=== PATIENT | female | born 2000 | race Caucasian/White ===

== ENCOUNTER 2022-11-16 16:04 | Emergency (ER) | payer OTHER ==
[~2022-11-16] VITALS: Ht 172.7 cm; Wt 117.9 kg
[2022-11-16] MEDS ORDERED: Bactrim Ds Tab1 EACH PO (16:23)
== END 2022-11-16 16:28 | disposition home or self-care (01) ==
LOC: ER 16:04
DX: L08.9 Local infection of the skin and subcutaneous tissue, unspecified (principal)
CPT/HCPCS: 99283; A9270

== ENCOUNTER 2024-10-22 16:50 | Emergency (ER) | payer SELFPAY ==
[~2024-10-22] VITALS: Ht 160 cm; Wt 131.5 kg
[~2024-10-22 16:50] MED LIST: Bactrim Ds Tab1 EACH PO
[2024-10-22] MEDS ORDERED: Ondansetron HCl 2 MG / ML 2ML Vial IV ONE ×3 (17:05→22:10)
[2024-10-22 18:11] LABS: BASOPHILS ABSOLUTE AUTO 0.01 K/mm3 (0.00-0.23); BASOPHILS PERCENT AUTO 0 % (0-2); EOSINOPHILS ABSOLUTE AUTO 0.03 K/mm3 (0.00-0.68); EOSINOPHILS PERCENT AUTO 0 % (0-6); Hematocrit 37.4 % (33.0-51.0); Hemoglobin 12.5 g/dL (11.5-16.0); IMMATURE GRAN ABSOLUTE AUTO 0.03 K/mm3 (0.00-0.10); IMMATURE GRAN PERCENT AUTO 0 % (0-1); LYMPHOCYTES ABSOLUTE AUTO 1.62 K/mm3 (0.84-5.20); LYMPHOCYTES PERCENT AUTO 20 % (21-46); MONOCYTES ABSOLUTE AUTO 0.42 K/mm3 (0.16-1.47); MONOCYTES PERCENT AUTO 5 % (4-13); Mean Corpuscular HGB Conc 33.4 g/dL (31.5-36.5); Mean Corpuscular Volume 84 fL (80-100); Mean Platelet Volume 8.7 fL (9.1-12.4); NEUTROPHILS ABSOLUTE AUTO 5.96 K/mm3 (1.96-9.15); NEUTROPHILS PERCENT AUTO 74 % (41-73); Platelet Count 428 K/mm3 (150-400); RDW Coefficient Variation 13.6 % (11.7-14.2); RDW Standard Deviation 41.6 fL (35.1-46.3); Red Blood Cell Count 4.47 M/mm3 (3.80-5.20); White Blood Cell Count 8.07 K/mm3 (4.00-11.30)
[2024-10-22 18:28] LABS: Albumin, Blood 3.9 g/dL (3.4-5.0); Albumin/Globulin Ratio 1.1 (0.8-1.8); Bilirubin, Total 0.5 mg/dL (0.1-1.0); Calcium, Blood 9.3 mg/dL (8.5-10.1); Creatinine, Blood 0.87 mg/dL (0.40-1.00); Globulin, Blood 3.6 g/dL (2.2-4.0); Magnesium, Blood 2.4 mg/dL (1.6-2.4); Potassium, Blood 4.2 mmol/L (3.5-5.5); Total Protein, Blood 7.5 g/dL (6.4-8.2)
[2024-10-22 18:41] LABS: CORONAVIRUS COVID-19 AG Negative (NEGATIVE); INFLUENZA A AG Negative (NEGATIVE); INFLUENZA B AG Negative (NEGATIVE)
[2024-10-22] MEDS ORDERED: Ondansetron HCl 2 MG / ML 2ML Vial ONE (19:16)
[2024-10-22 19:40] LABS: Source, Urine Clean Catch
[2024-10-22] MEDS ORDERED: NS 1,000 ML IV SCH (19:40)
[2024-10-22 19:45] LABS: Appearance, Urine Hazy (Clear); Bilirubin, Urine Neg (Neg); Blood, Urine 1+ (Neg); Color, Urine Yellow (P-Yellow); Glucose Qualitative, Urine Neg (Neg); Ketones, Urine 2+ (Neg); Leukocyte Esterase, Urine 1+ (Neg); Nitrite, Urine Neg (Neg); Protein, Urine 1+ (Neg); Urobilinogen, Urine NORM (Normal)
[2024-10-22 19:58] LABS: Bacteria Many /hpf; Mucus Light (0-Heavy); Squamous Epithelial Cells Mod /hpf (Few)
[2024-10-22] MEDS ORDERED: Cephalexin Monohydrate 250 MG/5 ML UD BTL PO ONE ×2 (21:30→22:10)
[2024-10-22 22:07] VITALS: BP 131/84
[2024-10-22] MEDS ORDERED: Cephalexin Monohydrate 500 MG Cap PO ONE (22:10)
[2024-10-22] MEDS ORDERED: ONDA4ODT MM (22:25)
[2024-10-22] MEDS ORDERED: CEPH500 PO (22:47)
== END 2024-10-22 22:30 | disposition home or self-care (01) ==
LOC: ER 16:50
PROVIDERS: Physician Assistant; Student in an Organized Health Care Education/Training Program
DX: R10.13 Epigastric pain (principal); K92.0 Hematemesis; K80.20 Calculus of gallbladder without cholecystitis without obstruction
CPT/HCPCS: 74177; 76705; 80053; 81001; 83735; 84703; 85025; 87077; 87086; 87147; 87186; 87428-QW; 96374-59; 96376; 99284-25; A9270; J2405; J7030; Q9967

== ENCOUNTER 2025-05-27 13:21 | Emergency (ER) | payer OTHER ==
[~2025-05-27] VITALS: Ht 175.3 cm; Wt 111.1 kg
[~2025-05-27 13:21] MED LIST changes: +CEPH500 PO; +ONDA4ODT MM
[2025-05-27 13:28] VITALS: BP 159/88
== END 2025-05-27 14:53 | disposition home or self-care (01) ==
LOC: ER 13:21
DX: S93.401A Sprain of unspecified ligament of right ankle, initial encounter (principal); W18.30XA Fall on same level, unspecified, initial encounter; Z79.899 Other long term (current) drug therapy
CPT/HCPCS: 73610; 99283-25; A9270